=== PATIENT | female | born 1960 | race African-American/Black ===

== ENCOUNTER 2025-02-10 18:12 | Observation (INO) | payer OTHER, SELFPAY ==
[2025-02-10] VITALS (14 sets, daily range): BP systolic 132–159; BP diastolic 69–118; PULSE 78–109; RESP 14–19; TEMP 36.4–36.7; O2SAT 95–100; BMI 25.0
--- NOTE | 2025-02-10 18:17 | DI.RAD.S_ITS ---
PROCEDURE: XR CHEST 1V INDICATIONS: Chest Pain TECHNIQUE: One view of the chest was acquired. COMPARISON: None. FINDINGS: Surgical changes and devices: None. Lungs and pleura: There is mild pulmonary vascular congestion. No definite focal infiltrate. No pleural effusions or pneumothorax. Mediastinum: Tortuous thoracic aorta. Heart size is mildly enlarged. Bones and chest wall: No suspicious bony lesions. Overlying soft tissues appear unremarkable. IMPRESSION: Mildly tortuous thoracic aorta. Mild pulmonary vascular congestion. No definite focal infiltrate. No pleural effusion or pneumothorax. Dictated by: Donovan Schroeder M.D. on 02/10/2025 at 19:05 Approved by: Donovan Schroeder M.D. on 02/10/2025 at 19:06
--- NOTE | 2025-02-10 18:29 | EKG_ITS ---
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
[2025-02-10 18:45] LABS: Add Manual Diff / Slide Review NO; Basophils Absolute Auto 0 /uL (0-100); Basophils Percent Auto 0.1 % (0-2); Eosinophils Absolute Auto 200 /uL (0-450); Eosinophils Percent Auto 3.8 % (2-4); Hemoglobin 11.3 g/dL (12.0-16.0); Lymphocytes Absolute Auto 1700 /uL (1100-4500); Lymphocytes Percent Auto 26.8 % (25-40); Mean Corpuscular HGB Conc 33.2 % (30-36); Mean Corpuscular Hemoglobin 29.9 PG (26-34); Mean Corpuscular Volume 90.2 fL (80-100); Monocytes Absolute Auto 400 /uL (0-900); Monocytes Percent Auto 5.5 % (3-14); Neutrophils Absolute Auto 4100 /uL (1500-7000); Neutrophils Percent Auto 63.8 % (50-75); Platelet Count 249 X10^3/uL (150-400); Red Blood Cell Count 3.77 X10^6/uL (4.0-5.2); Red Cell Distribution Width 12.7 % (11.6-14.8); White Blood Cell Count 6.4 X10^3/uL (4.5-11.0)
[2025-02-10 18:49] LABS: INR 1.1 (0.9-1.3); Prothrombin Time 12.9 SECONDS (9.4-12.5)
[2025-02-10 18:52] LABS: PTT Partial Thromboplastin Tim 35 SECONDS (25.1-36.5)
[2025-02-10 18:56] LABS: Alanine Aminotransferase 54 IU/L (<35); Albumin 4.3 g/dL (3.5-5.0); Albumin Globulin Ratio 1.5 (1.0-2.8); Alkaline Phosphatase 73 U/L (38-126); Aspartate Aminotransferase 86 IU/L (14-36); BUN Creatinine Ratio 21.1 (6-22); Bilirubin Total 0.4 mg/dL (0.2-1.3); Blood Urea Nitrogen 20 mg/dL (7-17); Carbon Dioxide 29 mmol/L (22-32); Chloride 101 mmol/L (98-107); Creatine Kinase 168 U/L (30-135); Estimated Glomerular Filt Rate > 60 mL/min (>60); Globulin 2.8 g/dL (1.7-4.1); Glucose 133 mg/dL (70-99); HEMOLYSIS < 15 (0-50); Lipase 66 U/L (23-300); Magnesium 1.9 mg/dL (1.6-2.3); Potassium 3.8 mmol/L (3.4-5.1); Sodium 136 mmol/L (137-145); Total Protein 7.1 g/dL (6.3-8.2)
[2025-02-10] MEDS: ASPIRIN 81 MG CHEW TAB 324 MG PO (19:04)
[2025-02-10 19:08] LABS: NT-proBNP (BNP-Adult 18+) 98 pg/mL (<125); Troponin I < 0.012 ng/mL (0.01-0.034)
--- NOTE | 2025-02-10 19:55 | ED.CHESTPAIN ---
HPI - Chest Pain General Chief Complaint: Chest Pain Stated Complaint: chest pain Time Seen by Provider: 02/10/25 18:19 Source: patient Mode of arrival: Ambulatory Limitations: no limitations History of Present Illness HPI narrative: 64-year-old woman with a history of hypothyroidism, hypertension presents with acute onset chest pain approximately 5:00 p.m. today she describes it as midsternal sharp radiating through to her back lasting 50-20 minutes occurring while sitting not associated with diaphoresis or nausea. She states that she is having small intermittent episodes of stabbing pain while at rest. She notes that she recently restarted using CPAP about 2 weeks ago. Also notes that in the last 2 weeks she stopped all of her blood pressure medications and found that her blood pressures have actually been lower without medications currently averaging in the 130 to 140/80 range without medications and with medications (and prior to restarting CPAP she was in the 150/100 range) she has never had similar chest pain. She notes yesterday she perhaps had some indigestion type feeling not enough to be particularly bothered by this. She does not describe exertional dyspnea or fatigue recently. She has no significant family history for coronary artery disease and no personal history of coronary artery disease or stroke. Her primary care physician is in [facility] or Related Data Home Medications ?Medication ?Instructions ?Recorded ?Confirmed levothyroxine 100 mcg tablet 100 mcg PO DAILY 02/10/25 02/10/25 (Levo-T) spironolactone 25 mg tablet 25 mg PO DAILY 02/10/25 02/10/25 Allergies Allergy/AdvReac Type Severity Reaction Status Date / Time lisinopril Allergy Severe Anaphylaxis Verified 02/10/25 18:32 telmisartan Allergy Severe Anaphylaxis Verified 02/10/25 18:32 hydrochlorothiazide Allergy Mild cough Verified 02/10/25 18:32 carvedilol Allergy Verified 02/10/25 18:32 clonidine Allergy Swelling Verified 02/10/25 18:32 of Lip/Tongue/Throat losartan Allergy Anaphylaxis Verified 02/10/25 18:32 triamterene Allergy Swelling Verified 02/10/25 18:32 of Lip/Tongue/Throat amlodipine AdvReac Mild Verified 02/10/25 18:32 chlothalidone AdvReac Uncoded 02/10/25 18:32 Review of Systems Review of Systems Narrative: Pertinent positive and negative findings as per HPI Patient History Medical History (Updated 02/10/25 @ 22:49 by Zoila Pacheco MD) Hypothyroidism (acquired) Sleep apnea Hypertension Social History Smoking Status: Never smoker Smoking Status: Never smoker Exam Initial Vital Signs Initial Vital Signs: Vital Signs Pulse Rate 85 02/10/25 18:19 Respiratory Rate 16 02/10/25 18:19 Blood Pressure 153/86 H 02/10/25 18:19 Pulse Oximetry 97 02/10/25 18:19 Oxygen Delivery Method Room Air 02/10/25 18:19 General: Healthy appearing, in no acute distress. Able to give a complete and coherent history. Well-nourished well-developed HEENT: Moist mucous membranes, normal sclera with reactive pupils, Neck: No JVD, supple Respiratory: Lungs are clear to auscultation, no wheezing no rales no rhonchi. Full and symmetrical air movement Cardiac: Regular rate and rhythm no murmurs no bruits. She has no reproducible pain with palpation along the anterior chest wall or upper abdomen Abdomen: Soft, nontender, no rebound or guarding, no flank pain Skin: Warm and dry, no rashes Neurologic: Grossly neurologically intact with no obvious asymmetries or abnormalities Extremities: No trauma, well perfused Psych: Cooperative, appropriate insight and affect Course Orders Ordered: ED Orders 02/10/25 18:17 XR chest 1V Stat EKG-12 Lead Stat 02/10/25 18:36 Complete Blood Count AUTO DIFF Stat Comprehensive Metabolic Panel Stat Lipase Stat Magnesium Stat NT-proBNP (BNP-Adult 18+) Stat PTT Partial Thromboplastin Sudhakar Stat Prothrombin Time INR Stat Troponin & CK Cardiac Panel Stat 02/10/25 20:18 CT angio chest abdomen pelvis Stat EKG-12 Lead Stat 02/10/25 20:50 Trop I [Troponin I] Stat 02/10/25 21:34 EKG-12 Lead Stat Discontinued Medications Aspirin (Aspirin 81 Mg Chew Tab) 324 mg PO NOW ONE Stop: 02/10/25 18:18 Last Admin: 02/10/25 19:04 Dose: 324 mg Documented By: Ondansetron HCl (Ondansetron 4 Mg/2 Ml Inj) 4 mg IV NOW ONE Stop: 02/10/25 20:58 Last Admin: 02/10/25 21:01 Dose: Not Given Documented By: Vital Signs Vital signs: Vital Signs - 8 hr 02/10/25 18:19 02/10/25 18:47 02/10/25 18:47 Temperature Pulse Rate 85 80 Respiratory Rate 16 Blood Pressure 153/86 H 136/69 Pulse Oximetry 97 95 Oxygen Delivery Method Room Air 02/10/25 19:00 02/10/25 19:00 02/10/25 19:08 Temperature 98.1 F Pulse Rate 78 Respiratory Rate Blood Pressure 137/78 Pulse Oximetry 97 Oxygen Delivery Method 02/10/25 19:30 02/10/25 19:30 02/10/25 20:33 Temperature Pulse Rate 80 Respiratory Rate 18 Blood Pressure 158/92 H Pulse Oximetry 95 Oxygen Delivery Method Room Air 02/10/25 20:52 02/10/25 20:52 02/10/25 21:00 Temperature Pulse Rate 105 H Respiratory Rate Blood Pressure 152/90 H 132/86 Pulse Oximetry 97 Oxygen Delivery Method 02/10/25 21:00 02/10/25 21:30 02/10/25 21:30 Temperature Pulse Rate 109 H 108 H Respiratory Rate 14 15 Blood Pressure 136/102 H Pulse Oximetry 97 96 Oxygen Delivery Method 02/10/25 21:43 02/10/25 21:43 02/10/25 22:00 Temperature Pulse Rate 106 H 80 Respiratory Rate 14 14 Blood Pressure 149/118 H Pulse Oximetry 95 96 Oxygen Delivery Method 02/10/25 22:00 Temperature Pulse Rate Respiratory Rate Blood Pressure 154/94 H Pulse Oximetry Oxygen Delivery Method MDM - Chest Pain Lab Data 02/10/25 18:36 02/10/25 18:36 Labs: Lab Results 02/10/25 02/10/25 Range/Units 18:36 20:50 WBC 6.4 (4.5-11.0) X10^3/uL RBC 3.77 L (4.0-5.2) X10^6/uL Hgb 11.3 L (12.0-16.0) g/dL Hct 34.0 L (36-46) % MCV 90.2 (80-100) fL MCH 29.9 (26-34) PG MCHC 33.2 (30-36) % RDW 12.7 (11.6-14.8) % Plt Count 249 (150-400) X10^3/uL Neut % (Auto) 63.8 (50-75) % Lymph % (Auto) 26.8 (25-40) % [place] % (Auto) 5.5 (3-14) % Eos % (Auto) 3.8 (2-4) % Baso % (Auto) 0.1 (0-2) % Neut # (Auto) 4100 (7956-9547) /uL Lymph # (Auto) 1700 (5491-6941) /uL [place] # (Auto) 400 (0-900) /uL Eos # (Auto) 200 (0-450) /uL Baso # (Auto) 0 (0-100) /uL PT 12.9 H (9.4-12.5) SECONDS INR 1.1 (0.9-1.3) APTT 35 (25.1-36.5) SECONDS Sodium 136 L (137-145) mmol/L Potassium 3.8 (3.4-5.1) mmol/L Chloride 101 (98-107) mmol/L Carbon Dioxide 29 (22-32) mmol/L BUN 20 H (7-17) mg/dL Creatinine 0.95 (0.52-1.04) mg/dL Estimated GFR > 60 (>60) mL/min BUN/Creatinine Ratio 21.1 (6-22) Glucose 133 H (70-99) mg/dL Calcium 9.0 (8.4-10.2) mg/dL Magnesium 1.9 (1.6-2.3) mg/dL Total Bilirubin 0.4 (0.2-1.3) mg/dL AST 86 H (14-36) IU/L ALT 54 H (<35) IU/L Alkaline Phosphatase 73 (38-126) U/L Total Creatine Kinase 168 H (30-135) U/L Troponin I < 0.012 < 0.012 (0.01-0.034) ng/mL NT-Pro-B Natriuret Pep 98 (<125) pg/mL Total Protein 7.1 (6.3-8.2) g/dL Albumin 4.3 (3.5-5.0) g/dL Globulin 2.8 (1.7-4.1) g/dL Albumin/Globulin Ratio 1.5 (1.0-2.8) Lipase 66 (23-300) U/L Imaging Data Chest x-ray: Radiologist's Impression: PROCEDURE: XR CHEST 1V INDICATIONS: Chest Pain TECHNIQUE: One view of the chest was acquired. COMPARISON: None. FINDINGS: Surgical changes and devices: None. Lungs and pleura: There is mild pulmonary vascular congestion. No definite focal infiltrate. No pleural effusions or pneumothorax. Mediastinum: Tortuous thoracic aorta. Heart size is mildly enlarged. Bones and chest wall: No suspicious bony lesions. Overlying soft tissues appear unremarkable. IMPRESSION: Mildly tortuous thoracic aorta. Mild pulmonary vascular congestion. No definite focal infiltrate. No pleural effusion or pneumothorax. Dictated by: Donovan Schroeder M.D. on 02/10/2025 at 19:05 CT angio chest abdomen pelvis: Radiologist's Impression: PROCEDURE: CT ANGIO CHEST ABDOMEN PELVIS INDICATIONS: dissection TECHNIQUE: Precontrast 5 mm thick sections acquired from the lung apices to the iliac crests. After the administration of intravenous contrast, 2.5 mm thick sections again acquired from the lung apices to the iliac crests. Maximum intensity projection (MIP) oblique sagittal and coronal reformats were then acquired. For radiation dose reduction, the following was used: automated exposure control. COMPARISON: None. FINDINGS: Image quality: Diagnostic. AORTA: No aortic aneurysm. No acute aortic syndrome. No dissection. CHEST: Lower Neck: No enlarged lymph nodes. Thyroid: No thyroid nodules which require sonographic follow up, per consensus guidelines. Axillae: No enlarged lymph nodes. Chest Wall: Unremarkable. Lungs and Pleura: No pneumothorax or pleural effusions. No consolidation or suspicious nodules. No septal thickening or nodularity. Visualized airways are clear. Mild bibasilar atelectasis. Heart: Heart size is normal. No pericardial effusion. Thoracic Vessels: Pulmonary arteries demonstrate normal size. Mediastinum and Candie: No enlarged lymph nodes. Esophagus: No wall thickening. No hiatal hernia. ABDOMEN: Liver: No solid mass. Hepatomegaly. Gallbladder: No radiopaque gallstones or wall thickening. Biliary ducts: No biliary dilation. Pancreas: No ductal dilation. Spleen: Size is within normal limits. Adrenal Glands: No adrenal nodules. Kidneys and Ureters: No hydronephrosis. No solid mass. No complex renal cystic lesion which requires follow up. Stomach and Bowel: Normal colonic caliber, without significant wall thickening. Scattered colonic diverticula without acute inflammation. Normal appendix. No evidence for small bowel obstruction or associated inflammatory changes. Peritoneum: No abnormal intraperitoneal fluid. No free air. Ventral Wall: There is a fat-containing umbilical hernia without acute inflammation. Abdominal Nodes: No retroperitoneal or mesenteric adenopathy by size criteria. Vessels: Inferior vena cava is normal in size. PELVIS: Pelvic Organs: Unremarkable. Bladder: Unremarkable. Pelvic Nodes: No enlarged lymph nodes. Miscellaneous: No inguinal hernias are seen. Small amount of pelvic free fluid likely physiologic. Bones: Unremarkable. Visualized osseous structures appear intact without acute fracture or focal destructive lesion. No acute compression fractures of the imaged spine. IMPRESSION: CT chest, abdomen, and pelvis without acute abnormalities. Specifically, no evidence for aneurysmal dilatation of the abdominal or thoracic aorta. No evidence for dissection. No evidence for acute aortic syndrome. Other chronic/nonacute findings as above. Dictated by: Ernst Loera M.D. on 02/10/2025 at 21:45 v [facility] Narrative Medical decision making narrative: CC: Sharp chest pain lasting approximately 20 minutes, intermittent episodes of shooting pain currently Complicating co-morbidities: Hypertension, sleep apnea, hypothyroidism Data collected from: patient Medical records reviewed: No records are available Differential considered: Acute coronary syndrome, pneumothorax, pneumomediastinum after starting CPAP again, gallbladder disease, reflux, pancreatitis Exam documented above, pertinent findings include: Completely benign exam Lab Test results independently reviewed as above. Pertinent findings: Chemistries show normal renal function, minimally elevated AST and ALT CBC is unremarkable, she does have slightly low hemoglobin at 11.3 and hematocrit at 34 Initial and repeat troponins are undetectable, Initial BNP is normal Independently reviewed EKG: Initial EKG shows sinus rhythm, no acute ischemia nonspecific lateral ST-T wave changes Repeat EKG done when she converted to atrial fibrillation shows rhythm changed to atrial fibrillation at a rate of 103. Nonspecific ST changes Imaging studies independently reviewed: Chest x-ray is described as having a mildly tortuous aorta with vascular congestion. There is some mediastinal widening on independent review. Given the history of blood pressure, the start sharp stabbing pain radiating through to her back, dissection still remains within the differential CT angiogram will be obtained Consultations: cardiology: Dr Meza In light of the poorly-controlled hypertension and then the probably unrelated but still present small episode of atrial fibrillation Dr. Landaverde help that hospital admission for observation serial enzymes and inpatient stress test would be reasonable. This is discussed with the patient who is amenable to that Treatments: Aspirin, Zofran Re-evaluations: 9:40pm patient has gone into atrial fibrillation at a rate of 103. She notes that after coming back from CT she vomited presumably from contrast. She thinks that the atrial fibrillation, and experienced she has never had before, is related to the contrast. At this point she is not having any pain, no shortness a breath hemodynamically stable she requests no interventions as she is so sensitive to all medications. With shared decision-making we will continue to monitor without intervention at this 957 spontaneous conversion to sinus Discussion: 64-year-old woman comes in with acute onset of stabbing chest pain radiating through to her back starting at rest lasting approximately 12-15 minutes, still having occasional lancinating episodes. At this time she is still having pain, we will try nitroglycerin to see if this influences the episodes. EKGs did not suggest STEMI, initial troponins are unremarkable, blood pressure remains erratic. Patient was still very much like to avoid medications if possible as the blood pressure has been trending down. While this may absolutely be cardiac related, there was no evidence of dissection. No infection, no pericarditis or pericardial effusion. Patient has multiple sensitive to medications. After her contrast for a CT scan she was quite nauseated, after vomiting she had approximately 15 minutes of atrial fibrillation that was associated with a sensation of her heart beating fast but no pain dyspnea or shortness for breath. The chest pain that she was complaining of did not change throughout that episode of cardiac irregularity. Possibilities continue to include acute coronary syndrome, esophageal spasm, GI issues. I suspect that the brief atrial fibrillation episode is true an unrelated. Patient is agreeable to hospitalization overnight for continued monitoring, serial enzymes and stress test 1st thing in the morning. Findings were discussed with hospitalist and patient will be admitted. Discharge Plan Departure Patient Disposition: Admitted as Observation Clinical Impression: Paroxysmal A-fib, Allergic to IV contrast Chest pain Qualifiers: Chest pain type: other chest pain Qualified Code(s): R07.89 - Other chest pain Hypertension Qualifiers: Hypertension type: primary hypertension Qualified Code(s): I10 - Essential (primary) hypertension
--- NOTE | 2025-02-10 20:18 | DI.CT.S_ITS ---
PROCEDURE: CT ANGIO CHEST ABDOMEN PELVIS INDICATIONS: dissection TECHNIQUE: Precontrast 5 mm thick sections acquired from the lung apices to the iliac crests. After the administration of intravenous contrast, 2.5 mm thick sections again acquired from the lung apices to the iliac crests. Maximum intensity projection (MIP) oblique sagittal and coronal reformats were then acquired. For radiation dose reduction, the following was used: automated exposure control. COMPARISON: None. FINDINGS: Image quality: Diagnostic. AORTA: No aortic aneurysm. No acute aortic syndrome. No dissection. CHEST: Lower Neck: No enlarged lymph nodes. Thyroid: No thyroid nodules which require sonographic follow up, per consensus guidelines. Axillae: No enlarged lymph nodes. Chest Wall: Unremarkable. Lungs and Pleura: No pneumothorax or pleural effusions. No consolidation or suspicious nodules. No septal thickening or nodularity. Visualized airways are clear. Mild bibasilar atelectasis. Heart: Heart size is normal. No pericardial effusion. Thoracic Vessels: Pulmonary arteries demonstrate normal size. Mediastinum and Candie: No enlarged lymph nodes. Esophagus: No wall thickening. No hiatal hernia. ABDOMEN: Liver: No solid mass. Hepatomegaly. Gallbladder: No radiopaque gallstones or wall thickening. Biliary ducts: No biliary dilation. Pancreas: No ductal dilation. Spleen: Size is within normal limits. Adrenal Glands: No adrenal nodules. Kidneys and Ureters: No hydronephrosis. No solid mass. No complex renal cystic lesion which requires follow up. Stomach and Bowel: Normal colonic caliber, without significant wall thickening. Scattered colonic diverticula without acute inflammation. Normal appendix. No evidence for small bowel obstruction or associated inflammatory changes. Peritoneum: No abnormal intraperitoneal fluid. No free air. Ventral Wall: There is a fat-containing umbilical hernia without acute inflammation. Abdominal Nodes: No retroperitoneal or mesenteric adenopathy by size criteria. Vessels: Inferior vena cava is normal in size. PELVIS: Pelvic Organs: Unremarkable. Bladder: Unremarkable. Pelvic Nodes: No enlarged lymph nodes. Miscellaneous: No inguinal hernias are seen. Small amount of pelvic free fluid likely physiologic. Bones: Unremarkable. Visualized osseous structures appear intact without acute fracture or focal destructive lesion. No acute compression fractures of the imaged spine. IMPRESSION: CT chest, abdomen, and pelvis without acute abnormalities. Specifically, no evidence for aneurysmal dilatation of the abdominal or thoracic aorta. No evidence for dissection. No evidence for acute aortic syndrome. Other chronic/nonacute findings as above. Dictated by: Ernst Loera M.D. on 02/10/2025 at 21:45 Approved by: Ernst Loera M.D. on 02/10/2025 at 21:50
--- NOTE | 2025-02-10 20:30 | EKG_ITS ---
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
[2025-02-10 21:26] LABS: Troponin I < 0.012 ng/mL (0.01-0.034)
--- NOTE | 2025-02-10 21:37 | EKG_ITS ---
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
--- NOTE | 2025-02-10 23:12 | DI.NM.S_ITS ---
PROCEDURE: NM RAJWINDER PERF SPECT REST & STR Rest and exercise myocardial perfusion SPECT with gated imaging and ejection fraction RADIOPHARMACEUTICAL: 9 mCi Tc-99m sestamibi IV at rest and 27.5 mCi Tc-99m sestamibi IV at peak exercise. A 27.5day-protocol was performed. INDICATIONS: chest pain TECHNIQUE: Radiopharmaceutical was injected at peak stress test, and also at rest. SPECT images were obtained. SPECT myocardial perfusion images were displayed in short axis, horizontal long axis, and vertical long axis views. Gated images were reviewed using [employer] software. COMPARISON: None. CARDIAC STRESS: A standard Kartik treadmill exercise tolerance test was performed by the patient under the supervision of an attending staff. The patient exercised for 8 minutes and 59 seconds; functional aerobic impairment ([place]) is -39%. Hemodynamic data: There is normal blood pressure and heart rate response to exercise stress. Patient achieved 89% of maximum predicted heart rate at peak exercise. Symptoms: Patient denied chest pain during exercise. EKG: Resting ECG showed sinus rhythm with minimal ST depression is the inferior leads. No diagnostic EKG changes of ischemia with exercise or recovery; no ectopy. FINDINGS: Raw data: There is good myocardial labeling by radiotracer. No significant motion artifacts. Left ventricle function: Gated images demonstrate normal left ventricle wall thickening. No segmental wall motion abnormality. No transient ischemic dilation; TID is 0.9 (normal less than 1.3). The left ventricle resting end-diastolic volume is 51 mL. Left ventricle stress ejection fraction is 75%; normal values are above 45%. Myocardial perfusion: There is normal distribution of activity in the left and right ventricular myocardium. No fixed or reversible perfusion defects. IMPRESSION: Low risk, normal treadmill nuclear stress test from inducible ischemia standpoint. 1) No perfusion evidence of ischemia or infarction. 2) Normal left ventricular size, wall motion, and systolic function (EF post stress 75%). 3) No angina during the study. 4) No diagnostic ST changes during exercise/recovery. 5) Good exercise tolerance (10.1METs, [place] -39%). Target heart rate reached. Appropriate BP response to exercise. 6) No prior nuclear stress test available for comparison. Dictated by: Fabiana Meza MD on 02/11/2025 at 15:24 Approved by: Fabiana Meza MD on 02/11/2025 at 15:29
--- NOTE | 2025-02-11 00:56 | P.HP_ITS ---
History of Present Illness History of Present Illness Date Patient Seen: 02/11/25 Time Patient Seen: 00:56 Chief complaint: chest pain Narrative: The pt is a 64 yo female who started having sharp sub-sternal chest pain this evening while sitting that lasted 15 minutes, ratiated to the back, intermittent. She had symptoms like this 3 years ago but no cardiac evaluation was done for it. She does not have a hx of cardiac issues in the past. No ETOH/ Tob, The pt wallace shave a hx of HTN but stopped taking her meds 2 weeks ago and she reports her BP is better since then. The pt has multiple allergies and reported side effects for many medications. The pt underwent a CT chest in the ER and had a brief episode of atrial fibrillation. The Er provider called the broommaking supervisor all source collection manager who recommended serial troponins and stress test in the am. [facility] Medical History (Updated 02/10/25 @ 22:49 by Zoila Pacheco MD) Hypothyroidism (acquired) Sleep apnea Hypertension Social History Smoking Status: Never smoker Meds Home Medications and Allergies Home Medications ?Medication ?Instructions ?Recorded ?Confirmed ?Type levothyroxine 100 mcg tablet 100 mcg PO DAILY 02/10/25 02/10/25 History (Levo-T) spironolactone 25 mg tablet 25 mg PO DAILY 02/10/25 History Allergies Allergy/AdvReac Type Severity Reaction Status Date / Time lisinopril Allergy Severe Anaphylaxis Verified 02/10/25 18:32 telmisartan Allergy Severe Anaphylaxis Verified 02/10/25 18:32 hydrochlorothiazide Allergy Mild cough Verified 02/10/25 18:32 carvedilol Allergy Verified 02/10/25 18:32 clonidine Allergy Swelling Verified 02/10/25 18:32 of Lip/Tongue/Throat losartan Allergy Anaphylaxis Verified 02/10/25 18:32 triamterene Allergy Swelling Verified 02/10/25 18:32 of Lip/Tongue/Throat amlodipine AdvReac Mild Verified 02/10/25 18:32 chlothalidone AdvReac Uncoded 02/10/25 18:32 Exam Vital Signs (past 8 hours): - 02/10/25 18:19 02/10/25 18:47 02/10/25 18:47 Temperature Pulse Rate 85 80 Respiratory Rate 16 Blood Pressure 153/86 H 136/69 Pulse Oximetry 97 95 Oxygen Delivery Method Room Air 02/10/25 19:00 02/10/25 19:00 02/10/25 19:08 Temperature 98.1 F Pulse Rate 78 Respiratory Rate Blood Pressure 137/78 Pulse Oximetry 97 Oxygen Delivery Method 02/10/25 19:30 02/10/25 19:30 02/10/25 20:33 Temperature Pulse Rate 80 Respiratory Rate 18 Blood Pressure 158/92 H Pulse Oximetry 95 Oxygen Delivery Method Room Air 02/10/25 20:52 02/10/25 20:52 02/10/25 21:00 Temperature Pulse Rate 105 H Respiratory Rate Blood Pressure 152/90 H 132/86 Pulse Oximetry 97 Oxygen Delivery Method 02/10/25 21:00 02/10/25 21:30 02/10/25 21:30 Temperature Pulse Rate 109 H 108 H Respiratory Rate 14 15 Blood Pressure 136/102 H Pulse Oximetry 97 96 Oxygen Delivery Method 02/10/25 21:43 02/10/25 21:43 02/10/25 22:00 Temperature Pulse Rate 106 H 80 Respiratory Rate 14 14 Blood Pressure 149/118 H Pulse Oximetry 95 96 Oxygen Delivery Method 02/10/25 22:00 02/10/25 22:33 02/10/25 22:33 Temperature Pulse Rate 82 Respiratory Rate Blood Pressure 154/94 H 159/98 H Pulse Oximetry 97 Oxygen Delivery Method 02/10/25 23:00 02/10/25 23:00 Temperature Pulse Rate 83 Respiratory Rate 19 Blood Pressure 141/89 H Pulse Oximetry 95 Oxygen Delivery Method Oxygen Delivery Method Room Air Const General: cooperative, healthy appearing and comfortable Resp Auscultation: clear to auscultation bilaterally Cardio Rate: regular rate Rhythm: regular rhythm Extrem General: no clubbing, cyanosis or edema Objective Labs 02/10/25 18:36 02/10/25 18:36 Labs: Laboratory Results - last 24 hr 02/10/25 02/10/25 18:36 20:50 WBC 6.4 RBC 3.77 L Hgb 11.3 L Hct 34.0 L MCV 90.2 MCH 29.9 MCHC 33.2 RDW 12.7 Plt Count 249 Neut % (Auto) 63.8 Lymph % (Auto) 26.8 [place] % (Auto) 5.5 Eos % (Auto) 3.8 Baso % (Auto) 0.1 Neut # (Auto) 4100 Lymph # (Auto) 1700 [place] # (Auto) 400 Eos # (Auto) 200 Baso # (Auto) 0 PT 12.9 H INR 1.1 APTT 35 Sodium 136 L Potassium 3.8 Chloride 101 Carbon Dioxide 29 BUN 20 H Creatinine 0.95 Estimated GFR > 60 BUN/Creatinine Ratio 21.1 Glucose 133 H Calcium 9.0 Magnesium 1.9 Total Bilirubin 0.4 AST 86 H ALT 54 H Alkaline Phosphatase 73 Total Creatine Kinase 168 H Troponin I < 0.012 < 0.012 NT-Pro-B Natriuret Pep 98 Total Protein 7.1 Albumin 4.3 Globulin 2.8 Albumin/Globulin Ratio 1.5 Lipase 66 Assessment & Plan Assessment & Plan narrative: 1. Chest pain - I have reviewed the CT chest that does not show any significant abnormalities, labs reviewed by myself reveals normal WBC, normal troponins X 2. Will monitor overnight on telemetry, serial troponins, stress test in the AM, If positive will consult cardiology. PPI + Mylanta and tums ordered as needed for possible GI causes of these symptoms. 2. mild transaminitis- AST/ALT mildly elevated along with CPK. unknown if related to the CT scan vs other causes, repeat in am. HTN- controlled at this time, continuing on home spironolactone. I have discussed the pt's presenting symptoms, labs and imaging with the ER provider and agree with the decision for admission. I have reviewed the labs and CT scan myself. I Dr. Neo Nobles, in [place] has seen and evaluated Yolis Castillo in [place] using audio/video of telemedicine with the pt's consent and nursing asistance. Time-Based Coding :: [TOTAL MINUTES] spent with patient and on the chart (including review of chart, obtaining history, exam, reviewing outside data, placing orders, documenting exam and treatment plan, and counseling patient) on [DATE].
[2025-02-11 04:00] VITALS: BP 118/80; PULSE 57; RESP 16; TEMP 36.4; O2SAT 98
[2025-02-11 05:32] LABS: Troponin I < 0.012 ng/mL (0.01-0.034)
[2025-02-11 05:38] LABS: Alanine Aminotransferase 259 IU/L (<35); Albumin 3.9 g/dL (3.5-5.0); Albumin Globulin Ratio 1.5 (1.0-2.8); Alkaline Phosphatase 80 U/L (38-126); Aspartate Aminotransferase 284 IU/L (14-36); BUN Creatinine Ratio 21.5 (6-22); Bilirubin Total 0.5 mg/dL (0.2-1.3); Blood Urea Nitrogen 17 mg/dL (7-17); Calcium 9.2 mg/dL (8.4-10.2); Carbon Dioxide 23 mmol/L (22-32); Chloride 108 mmol/L (98-107); Estimated Glomerular Filt Rate > 60 mL/min (>60); Globulin 2.6 g/dL (1.7-4.1); Glucose 83 mg/dL (70-99); HEMOLYSIS 45 (0-50); Sodium 138 mmol/L (137-145); Total Protein 6.5 g/dL (6.3-8.2)
[2025-02-11 07:00] VITALS: O2SAT 98
[2025-02-11 08:27] VITALS: BP 140/94; PULSE 62; RESP 16; TEMP 36.2; O2SAT 97
[2025-02-11] MEDS: LEVOTHYROXINE 100 MCG TABLET PO (08:59)
[2025-02-11 12:05] VITALS: BP 135/85; PULSE 64; RESP 16; TEMP 36.1; O2SAT 95
--- NOTE | 2025-02-11 12:28 | PC.NURSE ---
Addendum entered by Mar Diaz R.N. 02/11/25 18:03: Pt had ECHO Orders for D/C recieved. Home instructions givenSL D/C intact Pt escorted by staff via W/C to waiting vehicle D/C in stable staus Addendum entered by Mar Diaz R.N. 02/11/25 15:46: Pt denies any issues at this time. Had Nuc med test; awaiting ECHO later this afternoon. SL intact/patent. Independent in room. Call light w/in reach, pt calls appropriately for needs. Continue w/plan of care. Original Note: Pt had relatively uneventful morning Now escorted to Nuc med by DI staff for test.
--- NOTE | 2025-02-11 12:56 | P.HP_ITS ---
History of Present Illness History of Present Illness Date Patient Seen: 02/11/25 Time Patient Seen: 11:00 Chief complaint: chest pain Narrative: The pt is a 64 yo female who started having sharp sub-sternal chest pain this evening while sitting that lasted 15 minutes, ratiated to the back, intermittent. She had symptoms like this 3 years ago but no cardiac evaluation was done for it. She does not have a hx of cardiac issues in the past. No ETOH/ Tob, The pt wallace shave a hx of HTN but stopped taking her meds 2 weeks ago and she reports her BP is better since then. The pt has multiple allergies and reported side effects for many medications. The pt underwent a CT chest in the ER and had a brief episode of atrial fibrillation. The Er provider called the swimming pool serviceperson sales operations analyst who recommended serial troponins and stress test in the am. Interval history: No further afib events noted on monitor. Patient reports previous reactions to contrast including arrythmia though unclear. Her BP is controlled today. Unfortunately the camera for the nuclear stress testing is currently broken, may be up later today vs tomorrow. She has no chest pain currently. CTA chest performed in the ER was unremarkable. TTE ordered. [facility] Medical History (Updated 02/10/25 @ 22:49 by Zoila Pacheco MD) Hypothyroidism (acquired) Sleep apnea Hypertension Social History Smoking Status: Never smoker Meds Home Medications and Allergies Home Medications ?Medication ?Instructions ?Recorded ?Confirmed ?Type levothyroxine 100 mcg tablet 100 mcg PO DAILY 02/10/25 02/10/25 History (Levo-T) spironolactone 25 mg tablet 25 mg PO DAILY 02/10/25 History Allergies Allergy/AdvReac Type Severity Reaction Status Date / Time lisinopril Allergy Severe Anaphylaxis Verified 02/10/25 18:32 telmisartan Allergy Severe Anaphylaxis Verified 02/10/25 18:32 hydrochlorothiazide Allergy Mild cough Verified 02/10/25 18:32 carvedilol Allergy Verified 02/10/25 18:32 clonidine Allergy Swelling Verified 02/10/25 18:32 of Lip/Tongue/Throat losartan Allergy Anaphylaxis Verified 02/10/25 18:32 triamterene Allergy Swelling Verified 02/10/25 18:32 of Lip/Tongue/Throat amlodipine AdvReac Mild Verified 02/10/25 18:32 chlothalidone AdvReac Uncoded 02/10/25 18:32 Review of Systems Review of Systems Narrative: All other systems reviewed with the patient and are negative unless otherwise stated. Exam Vital Signs (past 8 hours): - 02/11/25 07:00 02/11/25 08:27 02/11/25 12:05 Temperature 97.1 F L 97.0 F L Pulse Rate 62 64 Respiratory Rate 16 16 Blood Pressure 140/94 H 135/85 Pulse Oximetry 98 97 95 Oxygen Delivery Method Room Air Oxygen Flow Rate 0 0 Oxygen Delivery Method Room Air Oxygen Flow Rate 0 Narrative Exam Narrative: General:? Patient is well developed and well nourished, in no distress at this time. Lungs:? CTA b/l no wheezing rhonchi or rales. Cardio:?RRR no m/r/g. Abdomen: S NT ND. No CVA tenderness. Musculoskeletal:? Muscle strength and tone are equal within normal limits, no deformity. Extremities: No edema or joint effusions. No cyanosis or clubbing. Objective ECG Impression: Atrial fibrillation with rapid ventricular response, nonspecific T wave abnormalities (flipped in III only) Labs 02/10/25 18:36 02/11/25 04:54 Labs: Laboratory Results - last 24 hr 02/10/25 02/10/25 02/11/25 18:36 20:50 04:54 WBC 6.4 RBC 3.77 L Hgb 11.3 L Hct 34.0 L MCV 90.2 MCH 29.9 MCHC 33.2 RDW 12.7 Plt Count 249 Neut % (Auto) 63.8 Lymph % (Auto) 26.8 [place] % (Auto) 5.5 Eos % (Auto) 3.8 Baso % (Auto) 0.1 Neut # (Auto) 4100 Lymph # (Auto) 1700 [place] # (Auto) 400 Eos # (Auto) 200 Baso # (Auto) 0 PT 12.9 H INR 1.1 APTT 35 Sodium 136 L 138 Potassium 3.8 4.0 Chloride 101 108 H Carbon Dioxide 29 23 BUN 20 H 17 Creatinine 0.95 0.79 Estimated GFR > 60 > 60 BUN/Creatinine Ratio 21.1 21.5 Glucose 133 H 83 Calcium 9.0 9.2 Magnesium 1.9 Total Bilirubin 0.4 0.5 AST 86 H 284 H ALT 54 H 259 H Alkaline Phosphatase 73 80 Total Creatine Kinase 168 H Troponin I < 0.012 < 0.012 < 0.012 NT-Pro-B Natriuret Pep 98 Total Protein 7.1 6.5 Albumin 4.3 3.9 Globulin 2.8 2.6 Albumin/Globulin Ratio 1.5 1.5 Lipase 66 Assessment & Plan Assessment & Plan narrative: 1. Chest pain, - continue plan for stress testing once again available. - HEART score indicating intermediate risk - unclear if related to paroxysmal afib or not. Multiple negative trops since admission and now symptoms resolved. 2. New diagnosis paroxysmal atrial fibrillation - currently in NSR, possible reaction to IV contrast? - continue tele monitoring - TTE ordered 3. Elevated transaminase levels - ? contrast reaction, will continue to monitor. No abdominal pain, nausea, or vomiting. Consider RUQ US if symptoms or worsening. 4. HTN - BP is controlled today, patient states she stopped taking BP medications as they did not seem to be helping her and she was not tolerating the side effects. Code: Full, surrogate is patient's POA listed in demographic section. I have utilized all available immediate resources to obtain, update, or review the patient's current medications. Dispo: patient admitted under observation status. Anticipate discharge home if stress testing is low risk, possibly later today if able to perform or more likely tomorrow given transaminase jump on AM labs. Additional history obtained via discussions with the overnight hospitalist provider. These discussions contributed to the creation of the above assessment and plan. I have reviewed patient's presenting documentation, labs, and imaging personally. Time-Based Coding :: [TOTAL MINUTES] spent with patient and on the chart (including review of chart, obtaining history, exam, reviewing outside data, placing orders, documenting exam and treatment plan, and counseling patient) on [DATE].
--- NOTE | 2025-02-11 13:28 | CM.DANOTE ---
Initial DCP Assessment Visit Note Reviewed EMR and team rounds for pt's medical status and updates. Went to meet with pt to introduce self and role, pt was found to be out of the room at time doing her stress test. Pt lives independently in her own home in [place]. She has a friend who can transport her home once she's medically stable for d/c, likely later this afternoon. Payor: Self Pay No PCP Pt is a 64 year-old F who presented to [facility] ED with c/o acute onset chest pain that radiated through to her back. She reports having started using a CPAP about 2-weeks ago. No distinct cause in imaging was found to explain her symptoms. She did go into Afib after her CT scan while she was vomiting as a result a reaction to the CT dye, but otherwise she has been stable and non-symptomatic. Decision was made to admit to OBS for overnight heart monitoring, ECHO and stress test. DCP will continue to monitor for any d/c needs, however none are expected at this time. 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 No History Provided By Patient,Medical Record Prior Living House Arrangements Household Members none Type of Drives own vehicle transporation used prior to admit Independent with ADL Yes 's Is patient alert and Pt was out of the room doing a stress test at time of oriented? this visit. Comment N/A Caregiver for No Another Comment No home d/c needs identified at this time. Barriers to No Discharge Discharge Plan Home Referrals Initiated None needed Whiteboard Updated Yes in Patient Room with name and ext. # of Pool Table Mechanic Review Status In Process Please Provide Date 02/11/25 Initial DC Assessment Was Performed
--- NOTE | 2025-02-11 16:29 | DI.ECHO.S_ITS ---
[place] +---------+ Hospital : : [address] : : [place] : : [id number] : : Phone: [phone] Echocardiogram Report + + :Name: JULISSA SIMMONS Study Date: 02/11/2025 Height: 66 in : :[facility] ReadingLocation: Weight: 155 lb : : Gender: Female BSA: 1.8 m2 : :: 1960 Age: 64 yrs BP: 140/94 mmHg: :Reason For Study: Chest pain : :Ordering Physician: KULWANT, : :ALEKSEY PANDYA Performed By: Hoang Dumont : :Referring: ALEKSEY BLUM : + + Interpretation Summary 1. The left ventricular contractility is borderline. Estimate ejection fraction is approximately 50 to 55% with no segmental wall motion abnormalities. Mild concentric LVH. Indeterminate diastolic function. 2. The right ventricular contractility is normal. 3. All cardiac chambers are of normal size. 4. Mild to moderate pulmonic insufficiency. 5. No obvious intracardiac shunts. 6. No obvious intracardiac masses nor thrombi. 7. No hemodynamically significant pericardial effusion. 8. Low right-sided filling pressures. Conclusion: Low normal left ventricular systolic function with mild to moderate pulmonic insufficiency. Procedure: A two-dimensional transthoracic echocardiogram with color flow and Doppler was performed. The study quality was technically adequate. There is no prior echocardiogram noted for this patient. The patient was in normal sinus rhythm during the exam. Left Ventricle: The left ventricle is normal in size. Left ventricular wall thickness is mildly increased. The ejection fraction is estimated to be 50- 55%. There are no focal wall motion abnormalities. Right Ventricle: The right ventricle is normal in size and function. Atria: The left atrial size is normal. Right atrial size is normal. There is no Doppler evidence for an interatrial shunt. Mitral Valve: The mitral valve leaflets appear to open well. There is no mitral valve stenosis. There is trace mitral regurgitation. Aortic Valve: The aortic valve is trileaflet. The aortic valve opens well. There is no aortic valve stenosis. No aortic regurgitation is present. Tricuspid Valve: The tricuspid valve leaflets are thin and pliable. There is trace tricuspid regurgitation. The right ventricular systolic pressure is estimated to be at least 20 mmHg based on an estimated right atrial pressure of 3 mm Hg. Pulmonic Valve: The pulmonic valve is not well seen, but is grossly normal. There is mild to moderate pulmonic regurgitation. Great Vessels: The aortic root is normal size. The ascending aorta is normal in size. The aortic arch could not be visualized. The IVC is of normal diameter and collapses greater than 50% with a sniff. This suggests a low right atrial pressure of 3 mm Hg. Pericardium/ Pleura There is no pericardial effusion. MMode/2D Measurements & Calculations LVIDd: 4.5 cm LVOT diam: 2.0 cm LVIDs: 2.9 cm Ao root diam: 3.4 cm FS: 35.9 % asc Aorta Diam: 3.3 cm EPSS: 0.50 cm IVSd: 1.1 cm LVPWd: 1.1 cm LV talamantes. diameter/BSA (cm/m^2): 2.5 LV sys. diameter/BSA (cm/m^2): 1.6 LA A2 area: 16.6 cm2 RA long axis: 3.7 cm LA A4 area: 18.2 cm2 RA area: 11.2 cm2 LA length (vol): 5.4 cm RA vol: 28.9 ml LA vol: 47.3 ml RA : 16.1 ml/m2 LA vol index: 26.4 ml/m2 RVD1 (basal): 2.6 cm RVD2 (mid): 1.8 cm TAPSE: 2.0 cm Doppler Measurements & Calculations Ao V2 max: 112.2 cm/sec LVOT Max Sav: 93.4 cm/sec Ao V2 mean: 82.9 cm/sec LV V1 max P.5 mmHg Ao max P.0 mmHg LV V1 VTI: 17.6 cm Ao mean P.0 mmHg REGINO(I,D): 2.6 cm2 Ao V2 VTI: 22.5 cm REGINO(V,D): 2.7 cm2 sev ratio: 0.78 REGINO indexed to BSA (cm^2/m^2): 1.4 MV E max sav: 67.5 cm/sec TR max sav: 206.1 cm/sec MV A max sav: 88.2 cm/sec TR max P.0 mmHg MV E/A: 0.77 PA V2 max: 72.7 cm/sec Med Peak E' Sav: 4.6 cm/sec PA V2 mean: 52.3 cm/sec E/E' med: 14.7 PA mean P.2 mmHg Lat Peak E' Sav: 4.7 cm/sec PA pr(Accel): 27.6 mmHg E/E' lat: 14.3 E/e' average: 14.5 MV dec time: 0.22 sec SVLVOT): 57.8 ml Reading Physician:LORNA
--- NOTE | 2025-02-11 17:52 | P.DS_ITS ---
History of Present Illness History of Present Illness Date Patient Seen: 02/11/25 Chief complaint: chest pain Narrative: The pt is a 64 yo female who started having sharp sub-sternal chest pain this evening while sitting that lasted 15 minutes, ratiated to the back, intermittent. She had symptoms like this 3 years ago but no cardiac evaluation was done for it. She does not have a hx of cardiac issues in the past. No ETOH/ Tob, The pt wallace shave a hx of HTN but stopped taking her meds 2 weeks ago and she reports her BP is better since then. The pt has multiple allergies and reported side effects for many medications. The pt underwent a CT chest in the ER and had a brief episode of atrial fibrillation. The Er provider called the setter cold rolling machine glue maker bone who recommended serial troponins and stress test in the am. Interval history: No further afib events noted on monitor. Patient reports previous reactions to contrast including arrythmia though unclear. Her BP is controlled today. Unfortunately the camera for the nuclear stress testing is currently broken, may be up later today vs tomorrow. She has no chest pain currently. CTA chest performed in the ER was unremarkable. TTE ordered. Discharge Providers Provider Date of admission: 02/10/25 22:54 Discharge Date: 02/11/25 Discharge provider: aDve Hoang DO Summary Hospital Course Discharge Diagnosis: 1. Chest pain, improved 2. New diagnosis paroxysmal atrial fibrillation 3. Elevated transaminase levels 4. HTN Hospital Course: Is a 64-year-old female with a past medical history of hypertension who was admitted with intermediate risk chest pain. In the emergency room, after contrast administration for a CTA, she developed transient atrial fibrillation which quickly resolved without medical therapy. She was monitored overnight, stress testing the following day was unremarkable and showed a normal ejection fraction. She also had bump in her transaminase levels the following morning, but no ongoing symptoms of abdominal or chest pain. Her blood pressure the following day was fairly well controlled without medications. I suspect her jump in transaminase levels are either due to a short run of atrial fibrillation, or possibly contrast administration. I have ordered a repeat test for a couple of days as an outpatient, the patient can follow up with primary care as well for repeat testing. It is possible that her atrial fibrillation could be due to a contrast reaction, though further investigation is warranted as an outpatient. Recommend follow-up with primary care to discuss possible anticoagulation, or further evaluation with a Holter monitor to see if her atrial fibrillation is less reactive than what it appears here. Time Spent with Patient Time spent: Greater than 30 minutes Exam Vital Signs (past 8 hours): - 02/11/25 12:05 Temperature 97.0 F L Pulse Rate 64 Respiratory Rate 16 Blood Pressure 135/85 Pulse Oximetry 95 Oxygen Flow Rate 0 Oxygen Delivery Method Room Air Oxygen Flow Rate 0 Narrative Exam Narrative: General:? Patient is well developed and well nourished, in no distress at this time. Lungs:? CTA b/l no wheezing rhonchi or rales. Cardio:?RRR no m/r/g. Abdomen: S NT ND. No CVA tenderness. Musculoskeletal:? Muscle strength and tone are equal within normal limits, no deformity. Extremities: No edema or joint effusions. No cyanosis or clubbing. Objective Labs 02/10/25 18:36 02/11/25 04:54 Labs: Laboratory Results - last 24 hr 02/10/25 02/10/25 02/11/25 18:36 20:50 04:54 WBC 6.4 RBC 3.77 L Hgb 11.3 L Hct 34.0 L MCV 90.2 MCH 29.9 MCHC 33.2 RDW 12.7 Plt Count 249 Neut % (Auto) 63.8 Lymph % (Auto) 26.8 [place] % (Auto) 5.5 Eos % (Auto) 3.8 Baso % (Auto) 0.1 Neut # (Auto) 4100 Lymph # (Auto) 1700 [place] # (Auto) 400 Eos # (Auto) 200 Baso # (Auto) 0 PT 12.9 H INR 1.1 APTT 35 Sodium 136 L 138 Potassium 3.8 4.0 Chloride 101 108 H Carbon Dioxide 29 23 BUN 20 H 17 Creatinine 0.95 0.79 Estimated GFR > 60 > 60 BUN/Creatinine Ratio 21.1 21.5 Glucose 133 H 83 Calcium 9.0 9.2 Magnesium 1.9 Total Bilirubin 0.4 0.5 AST 86 H 284 H ALT 54 H 259 H Alkaline Phosphatase 73 80 Total Creatine Kinase 168 H Troponin I < 0.012 < 0.012 < 0.012 NT-Pro-B Natriuret Pep 98 Total Protein 7.1 6.5 Albumin 4.3 3.9 Globulin 2.8 2.6 Albumin/Globulin Ratio 1.5 1.5 Lipase 66 PFSH Medical History (Updated 02/10/25 @ 22:49 by Zoila Pacheco MD) Hypothyroidism (acquired) Sleep apnea Hypertension Social History household members: none Smoking Status: Never smoker Discharge Plan Discharge Plan Patient Disposition: Home Provider Discharge Comment: You were admitted to the hospital with chest pain. Stress testing was done and was deemed low risk. No changes were made to your home medications. Please follow up with primary care provider as previously scheduled. please repeat lab testing in a few days either here or with Primary care provider to recheck liver enzymes. Discharge orders & Medications Prescriptions: Continued spironolactone 25 mg tablet 25 mg PO DAILY levothyroxine [Levo-T] 100 mcg tablet 100 mcg PO DAILY Other Ambulatory Orders: Comprehensive Metabolic Panel (Routine) Timeframe: 2 Days Facility: [facility] - Location: Laboratory Ordered By: Dave Hoang Diet/Activity/Treatments Diet: Diet as Tolerated and Regular Activity: As tolerated, no restrictions. Visit Report/Discharge Packet Stand Alone Forms: Patient Portal/API, Stroke Signs & Symptoms Discharge Data Primary Care Provider: Karina Nash Attending Provider: Neo Nobles Admit Date/Time: 02/10/25 22:54
== END 2025-02-11 18:17 | disposition home or self-care (01) ==
LOC: ED 22:49 → AC 22:55
PROVIDERS: Admitting Provider Internal Medicine; Emergency Provider Emergency Medicine; PCP Naturopath; Referring Provider Emergency Medicine; Visit Provider Internal Medicine
DX: I48.0 Paroxysmal atrial fibrillation (principal); R07.9 Chest pain, unspecified; R74.01 Elevation of levels of liver transaminase levels; E03.9 Hypothyroidism, unspecified; I10 Essential (primary) hypertension; G47.30 Sleep apnea, unspecified
CPT/HCPCS: 36415; 71045; 71275; 74174; 78452; 80053; 82550; 83690; 83735; 83880; 84484; 85025; 85610; 85730; 93005; 93010; 93017; 93306; 99284; G0378; A9502; Q9967

== ENCOUNTER 2025-07-22 19:02 | Emergency (ER) | payer OTHER, SELFPAY ==
[2025-02-10 23:28] VITALS: BMI 25.0
[2025-07-22] VITALS (11 sets, daily range): BP systolic 123–144; BP diastolic 72–88; PULSE 62–76; RESP 16–32; TEMP 37; O2SAT 91–98; BMI 25.8
--- NOTE | 2025-07-22 19:18 | EKG_ITS ---
[address] [address] Test Date: 2025-07-22 Pat Name: Yolis Castillo Department: [facility] Room: Gender: Female Brick Paver: SHRUTI FLOWERS : 1960 Requested By: Order Number: [id number] Reading MD: Fernando Milan Measurements Intervals [place] Rate: 74 P: 37 [place]: 152 QRS: 11 QRSD: 78 T: 4 QT: 394 QTc: 437 Interpretive Statements Normal sinus rhythm Minimal voltage criteria for LVH, may be normal variant ( R in aVL ) Nonspecific T wave abnormality Electronically Signed On 07-22-2025 19:58:34 PST by Fernando Milan
--- NOTE | 2025-07-22 19:18 | DI.RAD.S_ITS ---
PROCEDURE: XR CHEST 1V INDICATIONS: Chest Pain TECHNIQUE: One view of the chest was acquired. COMPARISON: [facility], CR, XR CHEST 1V, 02/10/2025, 18:40. FINDINGS: Surgical changes and devices: None. Lungs and pleura: Similar bilateral hilar fullness without focal consolidation. No pleural effusions or pneumothorax. Mediastinum: Tortuous thoracic aorta with atherosclerotic calcifications. Heart size is normal. Bones and chest wall: No suspicious bony lesions. Overlying soft tissues appear unremarkable. IMPRESSION: Chronic hilar fullness without focal consolidation, which may represent pulmonary congestion or hilar lymphadenopathy. Dictated by: Ulices Mack M.D. on 07/22/2025 at 19:58 Approved by: Ulices Mack M.D. on 07/22/2025 at 20:02
[2025-07-22 19:24] LABS: Add Manual Diff / Slide Review NO; Hematocrit 34.0 % (36-46); Hemoglobin 11.7 g/dL (12.0-16.0); Lymphocytes Absolute Auto 1500 /uL (1100-4500); Mean Corpuscular HGB Conc 34.4 % (30-36); Mean Corpuscular Hemoglobin 30.4 PG (26-34); Mean Corpuscular Volume 88.5 fL (80-100); Platelet Count 212 X10^3/uL (150-400)
[2025-07-22 19:32] LABS: Albumin 4.3 g/dL (3.5-5.0); Albumin Globulin Ratio 1.4 (1.0-2.8); Carbon Dioxide 27 mmol/L (22-32); Chloride 105 mmol/L (98-107); Globulin 3.0 g/dL (1.7-4.1); Total Protein 7.3 g/dL (6.3-8.2)
[2025-07-22 19:44] LABS: Troponin I < 0.012 ng/mL (0.01-0.034)
[2025-07-22 20:15] LABS: INR 1.0 (0.9-1.3); Prothrombin Time 11.5 SECONDS (9.4-12.5)
[2025-07-22 20:18] LABS: PTT Partial Thromboplastin Tim 30 SECONDS (25.1-36.5)
[2025-07-22 21:12] LABS: Alanine Aminotransferase 24 IU/L (<35); Alkaline Phosphatase 52 U/L (38-126); Blood Urea Nitrogen 25 mg/dL (7-17); Calcium 9.3 mg/dL (8.4-10.2); Creatine Kinase 180 U/L (30-135); Estimated Glomerular Filt Rate 60 mL/min (>60); Glucose 159 mg/dL (70-99); HEMOLYSIS 17 (0-50); Lipase 76 U/L (23-300); Magnesium 1.9 mg/dL (1.6-2.3); Potassium 3.6 mmol/L (3.4-5.1); Sodium 141 mmol/L (137-145)
--- NOTE | 2025-07-22 21:15 | ED_ITS ---
HPI - Chest Pain General Chief Complaint: Chest Pain Stated Complaint: Chest pain Time Seen by Provider: 07/22/25 19:13 Source: patient and EMS Mode of arrival: EMS Limitations: no limitations History of Present Illness HPI narrative: 65-year-old female with history of paroxysmal AFib, hypertension, contrast allergy. No previous coronary interventions recalled. Complains of sudden substernal chest discomfort radiating to her back, while standing in the kitchen, lessened, resolved, stuttering intermittent. With some associated shortness of breath, nausea, dizziness. No recent illness symptoms, cough, fever, chills, nausea, vomiting, diarrhea. Related Data Home Medications ?Medication ?Instructions ?Recorded ?Confirmed levothyroxine 100 mcg tablet 100 mcg PO DAILY 02/10/25 02/10/25 (Levo-T) spironolactone 25 mg tablet 25 mg PO DAILY 02/10/25 Allergies Allergy/AdvReac Type Severity Reaction Status Date / Time lisinopril Allergy Severe Anaphylaxis Verified 02/10/25 18:32 telmisartan Allergy Severe Anaphylaxis Verified 02/10/25 18:32 hydrochlorothiazide Allergy Mild cough Verified 02/10/25 18:32 carvedilol Allergy Verified 02/10/25 18:32 clonidine Allergy Swelling Verified 02/10/25 18:32 of Lip/Tongue/Throat losartan Allergy Anaphylaxis Verified 02/10/25 18:32 triamterene Allergy Swelling Verified 02/10/25 18:32 of Lip/Tongue/Throat amlodipine AdvReac Mild Verified 02/10/25 18:32 chlothalidone AdvReac Uncoded 02/10/25 18:32 Patient History Medical History (Updated 07/23/25 @ 00:45 by Armando Quintanilla MD) Hypothyroidism (acquired) Sleep apnea Hypertension Social History household members: none Smoking Status: Never smoker Smoking Status: Never smoker Exam Narrative Exam Narrative: GENERAL: Well-developed patient, in mild distress. HEAD: Atraumatic. Normocephalic. EYES: Pupils equal round and reactive. Extraocular motions intact. No scleral icterus. No injection or drainage. ENT: Nose without bleeding, purulent drainage. Throat without erythema, tonsillar hypertrophy or exudate. Airway patent. NECK: Trachea midline. Non tender CARDIOVASCULAR: Regular rate and rhythm without murmurs, gallops, or rubs. RESPIRATORY: Clear to auscultation. Breath sounds equal bilaterally. No wheezes, rales, or rhonchi. GASTROINTESTINAL: Abdomen soft, non-tender, nondistended. EXTREMITIES: No edema or joint tenderness. BACK: Nontender without deformity or crepitance. No flank tenderness. NEURO: AOx3. Motor functions grossly nonfocal. SKIN: No rash or erythema of visible areas Initial Vital Signs Initial Vital Signs: Vital Signs Pulse Rate 74 07/22/25 19:09 Pulse Oximetry 98 07/22/25 19:09 Oxygen Delivery Method Room Air 07/22/25 19:09 Scores HEART Score Heart Score history: Slightly Suspicious Heart Score EKG: Normal Heart Score Age: > or = 65 years old Heart Score risk factors: 1-2 risk factors Heart Score troponin: < or = to normal limit Heart Score Total: 3 Course Orders Ordered: Discontinued Medications Al Hydrox/Mg Hydrox/Simethicone 30 ml/ Lidocaine HCl 15 ml 0 ml PO NOW ONE Stop: 07/22/25 21:32 Last Admin: 07/22/25 21:53 Dose: 45 ml Documented By: FERMIN Famotidine (Famotidine 20 Mg/2 Ml Vial) 20 mg IV NOW ERICKSON Last Admin: 07/22/25 21:53 Dose: 20 mg Documented By: FERMIN Sodium Chloride (Normal Saline 0.9%) 1,000 mls @ 1,000 mls/hr IV BOLUS ONE Stop: 07/22/25 22:37 Last Infusion: 07/22/25 23:33 Dose: Infused Documented By: Admin: 07/22/25 21:53 Dose: 1,000 mls/hr Documented By: FERMIN Ondansetron HCl (Ondansetron 4 Mg/2 Ml Inj) 4 mg IV NOW ONE Stop: 07/22/25 22:12 Last Admin: 07/22/25 22:14 Dose: 4 mg Documented By: FERMIN Vital Signs Vital signs: Vital Signs - 8 hr 07/22/25 23:58 07/23/25 00:00 07/23/25 00:00 Temperature Pulse Rate 62 63 Blood Pressure 153/91 H Pulse Oximetry 97 95 Oxygen Delivery Method Room Air Room Air 07/23/25 01:08 Temperature 98.6 F Pulse Rate Blood Pressure Pulse Oximetry Oxygen Delivery Method MDM - Chest Pain Lab Data Attestation: I reviewed the patient's lab results. Lab results narrative: White blood cell count 5700, hemoglobin 11.7, platelets adequate. Glucose 159. BUN 25 with creatinine 1.04, normal renal function. Serum CO2 and electrolytes unremarkable. Liver functions normal. Lipase normal. Initial troponin negative/unmeasurable. BNP 213 slight elevation only. 07/22/25 19:10 07/22/25 19:10 Labs: Lab Results 07/22/25 07/22/25 07/22/25 Range/Units 19:10 20:00 20:50 WBC 5.7 (4.5-11.0) X10^3/uL RBC 3.84 L (4.0-5.2) X10^6/uL Hgb 11.7 L (12.0-16.0) g/dL Hct 34.0 L (36-46) % MCV 88.5 (80-100) fL MCH 30.4 (26-34) PG MCHC 34.4 (30-36) % RDW 12.2 (11.6-14.8) % Plt Count 212 (150-400) X10^3/uL Neut % (Auto) 64.7 (50-75) % Lymph % (Auto) 27.1 (25-40) % [place] % (Auto) 5.5 (3-14) % Eos % (Auto) 2.4 (2-4) % Baso % (Auto) 0.3 (0-2) % Neut # (Auto) 3700 (5586-2098) /uL Lymph # (Auto) 1500 (9348-1005) /uL [place] # (Auto) 300 (0-900) /uL Eos # (Auto) 100 (0-450) /uL Baso # (Auto) 0 (0-100) /uL PT 11.5 (9.4-12.5) SECONDS INR 1.0 (0.9-1.3) APTT 30 (25.1-36.5) SECONDS D-Dimer 961 H (<500) ng/ml Sodium 141 (137-145) mmol/L Potassium 3.6 (3.4-5.1) mmol/L Chloride 105 (98-107) mmol/L Carbon Dioxide 27 (22-32) mmol/L BUN 25 H (7-17) mg/dL Creatinine 1.04 (0.52-1.04) mg/dL Estimated GFR 60 (>60) mL/min BUN/Creatinine Ratio 24.0 H (6-22) Glucose 159 H (70-99) mg/dL Calcium 9.3 (8.4-10.2) mg/dL Magnesium 1.9 (1.6-2.3) mg/dL Total Bilirubin 0.2 (0.2-1.3) mg/dL AST 34 (14-36) IU/L ALT 24 (<35) IU/L Alkaline Phosphatase 52 (38-126) U/L Total Creatine Kinase 180 H (30-135) U/L Troponin I < 0.012 < 0.012 (0.01-0.034) ng/mL NT-Pro-B Natriuret Pep 213 H (<125) pg/mL Total Protein 7.3 (6.3-8.2) g/dL Albumin 4.3 (3.5-5.0) g/dL Globulin 3.0 (1.7-4.1) g/dL Albumin/Globulin Ratio 1.4 (1.0-2.8) Lipase 76 (23-300) U/L Imaging Data Chest x-ray: Radiologist's Impression: [address] [address] XRay Report Signed Patient: Yolis Castillo MR#: [id number] : 1960 Acct:[id number] Age/Sex: 65 / F Date of Service: 07/22/25 Loc: ED Accession Number: [id number] Procedure: XR chest 1V Ordering Provider: Armando Quintanilla MD PROCEDURE: XR CHEST 1V INDICATIONS: Chest Pain TECHNIQUE: One view of the chest was acquired. COMPARISON: [facility], , XR CHEST 1V, 02/10/2025, 18:40. FINDINGS: Surgical changes and devices: None. Lungs and pleura: Similar bilateral hilar fullness without focal consolidation. No pleural effusions or pneumothorax. Mediastinum: Tortuous thoracic aorta with atherosclerotic calcifications. Heart size is normal. Bones and chest wall: No suspicious bony lesions. Overlying soft tissues appear unremarkable. IMPRESSION: Chronic hilar fullness without focal consolidation, which may represent pulmonary congestion or hilar lymphadenopathy. Dictated by: Ulices Mack M.D. on 07/22/2025 at 19:58 Approved by: Ulices Mack M.D. on 07/22/2025 at 20:02 CTA chest: Radiologist's Impression: [address] [address] [address] Scan Report Signed Patient: Yolis Casitllo MR#: [id number] : 1960 Acct:[id number] Age/Sex: 65 / F Date of Service: 07/22/25 Loc: ED Accession Number: [id number] Procedure: CT angio chest PE protocol Ordering Provider: Armando Quintanilla MD PROCEDURE: CT ANGIO CHEST PE PROTOCOL INDICATIONS: chest pain, Dd+ TECHNIQUE: After the administration of intravenous contrast, 2 mm thick sections acquired from the pulmonary apices to the posterior costophrenic angles. 3-dimensional maximum intensity projection (MIP) coronal and sagittal reformats were then acquired through the thorax. For radiation dose reduction, the following was used: automated exposure control, adjustment of mA and/or kV according to patient size. COMPARISON: [facility], CR, XR CHEST 1V, 07/22/2025, 19:16. FINDINGS: Image quality: Diagnostic. Pulmonary arteries: Pulmonary arteries are normal in size, and demonstrate no intraluminal filling defects to suggest central pulmonary embolism. Lower Neck: No enlarged lymph nodes. Thyroid: No thyroid nodules which require sonographic follow up, per consensus guidelines. Axillae: No enlarged lymph nodes. Chest Wall: Unremarkable. Bones: Unremarkable. Lungs and Pleura: No pneumothorax or pleural effusions. No consolidation or suspicious nodules. Heart: Heart size is normal. No pericardial effusion. Thoracic Vessels: No aortic aneurysm. Mediastinum and Candie: No enlarged lymph nodes. Esophagus: No wall thickening. No hiatal hernia. Upper Abdomen: Visualized upper abdomen solid organs and bowel loops appear normal. IMPRESSION: No pulmonary embolus. No acute cardiopulmonary process. Dictated by: Madeline Quach M.D. on 07/22/2025 at 22:54 Approved by: Madeline Quach M.D. on 07/22/2025 at 22:57 CT scan - abdomen/pelvis: Radiologist's Impression: [address] [address] [address] Scan Report Signed Patient: Yolis Castillo MR#: [id number] : 1960 Acct:[id number] Age/Sex: 65 / F Date of Service: 07/22/25 Loc: ED Accession Number: [id number] Procedure: CT abdomen pelvis w con Ordering Provider: Armando Quintanilla MD PROCEDURE: CT ABDOMEN PELVIS W CON INDICATIONS: CP Dimer+ TECHNIQUE: After the administration of intravenous contrast, axial sections acquired from the lung bases to the pubic symphysis. Coronal and sagittal reformats were performed. For radiation dose reduction, the following was used: automated exposure control, adjustment of mA and/or kV according to patient size. COMPARISON: [facility], CT, CT ANGIO CHEST ABDOMEN PELVIS, 02/10/2025, 20:43. FINDINGS: Image quality: Diagnostic. Lower Chest: No significant findings. ABDOMEN: Liver: No solid mass. Steatosis. Gallbladder: No radiopaque gallstones or wall thickening. Biliary ducts: No biliary dilation. Pancreas: No ductal dilation. Spleen: Size is within normal limits. Adrenal Glands: No adrenal nodules. Kidneys and Ureters: No hydronephrosis. No solid mass. No complex renal cystic lesion which requires follow up. Stomach and Bowel: Normal colonic caliber, without significant wall thickening. Moderate colonic stool. No obstruction. Scattered diverticula without inflammatory change. Appendix is normal. Peritoneum: Minimal dependent pelvic fluid. No free air. Ventral Wall: No significant ventral hernia. Abdominal Nodes: No retroperitoneal or mesenteric adenopathy by size criteria. Vessels: Aorta and inferior vena cava are normal in size. PELVIS: Pelvic Organs: Unremarkable. Bladder: No bladder wall thickening, accounting for underdistention. Pelvic Nodes: No enlarged lymph nodes. Miscellaneous: No inguinal hernias are seen. Bones: No aggressive osseous abnormality. IMPRESSION: Prominent colonic stool without obstruction. Diverticulosis. Minimal dependent pelvic fluid. Dictated by: Madeline Quach M.D. on 07/22/2025 at 22:58 Approved by: Madeline Quach M.D. on 07/22/2025 at 22:59 ECG Data Attestation: I personally reviewed and interpreted this ECG as follows: Interpretation: 194, normal sinus rhythm with rate of 74, no obvious ST segment elevation or depression changes. SC 152, QRS 78, QTC 437. MDM Narrative Medical decision making narrative: 65-year-old female with history of hypertension, currently on Aldactone, history of allergies/intolerances to various other antihypertensive medications, with substernal chest discomfort while standing at rest in the kitchen, some radiation to left arm, no associated nausea or vomiting or diaphoresis. Pain improving and nearly resolved on arrival to the ED. Given aspirin after triage. Heart score = 3 Screening EKG without obvious ischemic changes, sinus rhythm. Chest x-ray. IMPRESSION: Chronic hilar fullness without focal consolidation, which may represent pulmonary congestion or hilar lymphadenopathy. See radiology report. Lab data: White blood cell count 5700, hemoglobin 11.7, platelets adequate. Glucose 159. BUN 25 with creatinine 1.04, normal renal function. Serum CO2 and electrolytes unremarkable. Liver functions normal. Lipase normal. Initial troponin negative/unmeasurable. BNP 213 slight elevation only. Slight residual 1/10 chest discomfort, does not want nitroglycerin which has given her headache in the past, will give GI cocktail and Pepcid for now. Interval repeat troponin pending. D-dimer 900s elevated. CT angiogram chest PE protocol, with IV only CT abdomen and pelvis imaging ordered. CTA chest acute changes, see radiology report. CT abdomen and pelvis with IV contrast. No acute changes, prominent colonic stool without obstruction, diverticulosis. See radiology report. Interval repeat troponin also negative. Further workup as an outpatient for now. Patient expressed understanding. Given contact information for [facility] Dr. Landin. Discharged home with support friends. Return precautions discussed. Discharge Plan Departure Patient Disposition: Home Clinical Impression: Chest pain Qualifiers: Chest pain type: other chest pain Qualified Code(s): R07.89 - Other chest pain Activity Restrictions/Additional Instructions: Chest discomfort of unclear cause. EKG and serial blood tests not suggestive of heart attack at this time. CT angiogram of the chest showed no blood clots to the test, normal aorta, no aortic tearing or dilation or aortic artery syndrome or other acute findings. CT abdomen and pelvis showed no acute findings. Further testing for now as an outpatient. Contact information given for clinic of local [facility] Dr. Landin, call his office on Sunday, further testing as an outpatient for now. Consider taking aspirin daily by mouth for now, pending further evaluation by Cardiology. If your symptoms happened to be related to acid reflux, you could consider [id number] antacid such as Pepcid/famotidine, or omeprazole/Prilosec. Return earlier to this/nearest emergency department for any change worsening symptoms or any concerns prior. Prescriptions: No Action spironolactone 25 mg tablet 25 mg PO DAILY levothyroxine [Levo-T] 100 mcg tablet 100 mcg PO DAILY Referrals: Karina Nash ND [Primary Care Provider, Naturopathy] Stand Alone Forms: Patient Portal/API
[2025-07-22 21:21] LABS: NT-proBNP (BNP-Adult 18+) 213 pg/mL (<125)
--- NOTE | 2025-07-22 21:38 | DI.CT.S_ITS ---
PROCEDURE: CT ABDOMEN PELVIS W CON INDICATIONS: CP Dimer+ TECHNIQUE: After the administration of intravenous contrast, axial sections acquired from the lung bases to the pubic symphysis. Coronal and sagittal reformats were performed. For radiation dose reduction, the following was used: automated exposure control, adjustment of mA and/or kV according to patient size. COMPARISON: [facility], CT, CT ANGIO CHEST ABDOMEN PELVIS, 02/10/2025, 20:43. FINDINGS: Image quality: Diagnostic. Lower Chest: No significant findings. ABDOMEN: Liver: No solid mass. Steatosis. Gallbladder: No radiopaque gallstones or wall thickening. Biliary ducts: No biliary dilation. Pancreas: No ductal dilation. Spleen: Size is within normal limits. Adrenal Glands: No adrenal nodules. Kidneys and Ureters: No hydronephrosis. No solid mass. No complex renal cystic lesion which requires follow up. Stomach and Bowel: Normal colonic caliber, without significant wall thickening. Moderate colonic stool. No obstruction. Scattered diverticula without inflammatory change. Appendix is normal. Peritoneum: Minimal dependent pelvic fluid. No free air. Ventral Wall: No significant ventral hernia. Abdominal Nodes: No retroperitoneal or mesenteric adenopathy by size criteria. Vessels: Aorta and inferior vena cava are normal in size. PELVIS: Pelvic Organs: Unremarkable. Bladder: No bladder wall thickening, accounting for underdistention. Pelvic Nodes: No enlarged lymph nodes. Miscellaneous: No inguinal hernias are seen. Bones: No aggressive osseous abnormality. IMPRESSION: Prominent colonic stool without obstruction. Diverticulosis. Minimal dependent pelvic fluid. Dictated by: Madeline Quach M.D. on 07/22/2025 at 22:58 Approved by: Madeline Quach M.D. on 07/22/2025 at 22:59
--- NOTE | 2025-07-22 21:38 | DI.CT.S_ITS ---
PROCEDURE: CT ANGIO CHEST PE PROTOCOL INDICATIONS: chest pain, Dd+ TECHNIQUE: After the administration of intravenous contrast, 2 mm thick sections acquired from the pulmonary apices to the posterior costophrenic angles. 3-dimensional maximum intensity projection (MIP) coronal and sagittal reformats were then acquired through the thorax. For radiation dose reduction, the following was used: automated exposure control, adjustment of mA and/or kV according to patient size. COMPARISON: [facility], CR, XR CHEST 1V, 07/22/2025, 19:16. FINDINGS: Image quality: Diagnostic. Pulmonary arteries: Pulmonary arteries are normal in size, and demonstrate no intraluminal filling defects to suggest central pulmonary embolism. Lower Neck: No enlarged lymph nodes. Thyroid: No thyroid nodules which require sonographic follow up, per consensus guidelines. Axillae: No enlarged lymph nodes. Chest Wall: Unremarkable. Bones: Unremarkable. Lungs and Pleura: No pneumothorax or pleural effusions. No consolidation or suspicious nodules. Heart: Heart size is normal. No pericardial effusion. Thoracic Vessels: No aortic aneurysm. Mediastinum and Candie: No enlarged lymph nodes. Esophagus: No wall thickening. No hiatal hernia. Upper Abdomen: Visualized upper abdomen solid organs and bowel loops appear normal. IMPRESSION: No pulmonary embolus. No acute cardiopulmonary process. Dictated by: Madeline Quach M.D. on 07/22/2025 at 22:54 Approved by: Madeline Quach M.D. on 07/22/2025 at 22:57
[2025-07-22 21:46] LABS: Troponin I < 0.012 ng/mL (0.01-0.034)
[2025-07-22] MEDS: SODIUM CHLORIDE 0.9% 1,000 ML 1000 ML IV (21:53)
[2025-07-22] MEDS: MAG HYDROX/ALUMINUM/SIMETH SUS 30 ML, LIDOCAINE VISCOUS 2% 15 ML PO (21:53)
[2025-07-22] MEDS: FAMOTIDINE 20 MG/2 ML VIAL IV (21:53)
[2025-07-22] MEDS: ONDANSETRON 4 MG/2 ML INJ IV (22:14)
[2025-07-23] VITALS: BP 153/91; PULSE 63; O2SAT 95
[2025-07-23 01:08] VITALS: TEMP 37
== END 2025-07-23 01:10 | disposition home or self-care (01) ==
PROVIDERS: Emergency Provider Emergency Medicine; PCP Naturopath
DX: R07.89 Other chest pain (principal); R06.02 Shortness of breath; I10 Essential (primary) hypertension
CPT/HCPCS: 36415; 71045; 71275; 74177; 80053; 82550; 83690; 83735; 83880; 84484; 85025; 85379; 85610; 85730; 93005; 96374; 96375; 99284; J2405; J7030; Q9967